=== PATIENT | male | born 1970 ===

== ENCOUNTER 2020-03-18 12:26 | Emergency (ER) | payer BC ==
--- NOTE | 2020-03-18 12:46 | EDM.PDOC ---
ED HPI GENERAL MEDICAL PROBLEM - General Chief Complaint: Upper Extremity Injury/Pain Stated Complaint: LT PINKY FINGER INJURY Time Seen by Provider: 03/18/20 12:41 Source of Information: Reports: Patient History Limitations: Reports: No Limitations - History of Present Illness INITIAL COMMENTS - FREE TEXT/NARRATIVE: 50-year-old male presents to the ED with an acute injury to his left hand particularly the left fifth finger. He states he was working up on a ladder when it tipped over at about 1130 this morning causing him to fall to the ground. Here for is not exactly sure how he hurt his left fifth finger. Is unable to bend it at all. He states he landed on the ladder with his ribs but his ribs do not hurt at all that bad and he did not hit his head. Patient is unable to flex I have the fourth or fifth finger without a good deal of pain. Onset: Today, Sudden Onset Date: 03/18/20 Onset Time: 11:30 Duration: Minutes:, Getting Worse Location: Reports: Upper Extremity, Left (Left) Quality: Reports: Ache ( fifth finger and lateral hand injury), Throbbing Severity: Moderate Improves with: Reports: Rest Worsens with: Reports: Movement Context: Reports: Trauma (Fall from a ladder approximate 1130 and landed on outstretched left hand. Believed to have jammed up his left). Denies: Activity, Exercise, Lifting, Sick Contact Associated Symptoms: Reports: No Other Symptoms Treatments MANAGER SHOP: Reports: Other (see below) (None.) Left Finger-Little Pain Score (Numeric/FACES): 1 - Related Data Allergies Allergy/AdvReac Type Severity Reaction Status Date / Time No Known Allergies Allergy Verified 03/18/20 12:42 Home Meds: Home Meds Empagliflozin [Jardiance] 25 mg PO DAILY 03/18/20 [History] Rosuvastatin Calcium 10 mg PO DAILY 03/18/20 [History] lisinopriL [Lisinopril] 10 mg PO DAILY 03/18/20 [History] metFORMIN HCl [Metformin HCl ER] 500 mg PO BID 03/18/20 [History] Past Medical History Cardiovascular History: Reports: High Cholesterol Endocrine/Metabolic History: Reports: Diabetes, Type II Social & Family History - Living Situation & Occupation Living situation: Reports: Occupation: Employed Review of Systems - Review of Systems Review Of Systems: See Below Constitutional: Reports: No Symptoms Eyes: Reports: Glasses Ears: Reports: No Symptoms Nose: Reports: No Symptoms Mouth/Throat: Reports: No Symptoms Respiratory: Reports: No Symptoms Cardiovascular: Reports: No Symptoms GI/Abdominal: Reports: No Symptoms Genitourinary: Reports: Other (Urinary frequency. Nocturia usually 2-3 times per night.) Musculoskeletal: Reports: Back Pain, Hand Pain (Current pain left hand particularly fifth finger and fifth metacarpal.), Joint Pain (Occasional pain in his knees.) Skin: Reports: No Symptoms Neurological: Reports: No Symptoms Psychiatric: Reports: No Symptoms ED EXAM, GENERAL - Physical Exam Exam: See Below Exam Limited By: No Limitations General Appearance: Alert, WD/WN, No Apparent Distress, Other (Temperature is 37.0 heart rate is 69 is sinus respiratory to 16 BP 119/84 pulse ox 97% room air) Extremities: Other (Examination was limited to the left hand. No swelling of the wrist appreciated. Does have pain over the distal aspect of the left fifth metacarpal and inability to flex the left fifth finger as well as the fourth finger due to pain. I cannot state for sure there is any obvious deformity.) Neurological: Alert, Oriented, CN II-XII Intact Psychiatric: Normal Affect, Normal Mood Skin Exam: Warm, Dry, Intact, Normal Color, No Rash Course - Vital Signs Last Recorded V/S: Last Vital Signs Temp 37.0 C 03/18/20 12:39 Pulse 69 03/18/20 12:39 Resp 16 03/18/20 12:39 BP 119/84 03/18/20 12:39 Pulse Ox 97 03/18/20 12:39 - Orders/Labs/Meds Meds: Medications Discontinued Medications Generic Name Dose Route Start Last Admin Trade Name Miguel Ángelq PRN Reason Stop Dose Admin Bupivacaine HCl 10 ml 03/18/20 13:09 03/18/20 13:19 Sensorcaine-Mpf 0.5% INJECT 03/18/20 13:10 10 ml ONETIME ONE Administration - Radiology Interpretation Free Text/Narrative:: 50-year-old male presents to the ED with an acute injury to his left fifth finger and left fifth metacarpal when he fell from a ladder at about 1130 this morning. Believed to have landed directly on the hand with injury to the distal left finger. At present he is unable to flex the finger at the MCP joint but it does not appear to be obviously deformed. Questionable underlying fracture. Plan x-ray of the left hand to be done. - Re-Assessments/Exams Free Text/Narrative Re-Assessment/Exam: 03/18/20 13:09 x-ray of the left hand reveals a dislocation of the PIP joint of the left fifth finger. The middle phalanx is dislocated anteriorly. Questionable chip fracture off of the joint at that site. Plan will be to provide a digital block using 0.5% bupivacaine and then to reduce the joint. 03/18/20 13:27 Digital block of the left fifth finger has been carried out using 0.5% Marcaine. Patient tolerated the procedure well. I will reduce his dislocated finger in about 10 to 15 minutes. 03/18/20 13:36 reduce the PIP joint under digital block at this time. Postreduction films to be obtained 03/18/20 13:51 post reduction films reveal return to normal anatomical alignment. There is a chip fracture corner fracture off the radial aspect of the proximal phalanx at the PIP joint. We will will be to alexx tape the fourth and fifth fingers together for the next 10 days and then to start gradual range of motion. Motrin 600 mg every 6 hours as needed for pain relief. Departure - Departure Time of Disposition: 13:52 Disposition: Home, Self-Care 01 Condition: Fair Clinical Impression: Dislocation closed, finger Qualifiers: Encounter type: initial encounter Qualified Code(s): S63.259A - Unspecified dislocation of unspecified finger, initial encounter Fracture of proximal phalanx of digit of left hand Qualifiers: Encounter type: initial encounter Fracture type: closed Qualified Code(s): S62.619A - Displaced fracture of proximal phalanx of unspecified finger, initial encounter for closed fracture - Discharge Information *PRESCRIPTION DRUG MONITORING PROGRAM REVIEWED*: Not Applicable *COPY OF PRESCRIPTION DRUG MONITORING REPORT IN PATIENT ROSA: Not Applicable Instructions: Finger or Thumb Dislocation, Finger Fracture, Adult Referrals: Ivette Gallegos NP [Primary Care Provider] - Forms: ED Department Discharge Additional Instructions: Evaluation in the emergency room today in regards to injury to the left fifth finger after falling from a ladder this morning. You likely landed with direct blow to the end of the left fifth finger which in turn resulted in a dislocation at the proximal interphalangeal joint. Digital block was performed using 0.5% bupivacaine and then 10 minutes later the joint was reduced back to normal position. Postreduction x-rays reveal a small chip fracture or corner fracture off of the proximal phalanx on the thumb side of the bone. Treatment is to place cotton pierre between the fourth and fifth fingers in the webspace and alexx tape them together for the next 10 days may then start to resume range of motion of the finger otherwise it gets pretty stiff. Motrin 600 mg every 6 hours needed for pain relief. Sepsis Event Note (ED) - Evaluation Sepsis Screening Result: No Definite Risk - Focused Exam Vital Signs: Vital Signs Temp Pulse Resp BP Pulse Ox 03/18/20 12:39 37.0 C 69 16 119/84 97
--- NOTE | 2020-03-18 13:07 | CR ---
Left hand: 3 views left hand were obtained. Comparison: No prior hand study. Dislocation is noted within the PIP joint of the fifth digit. Small bony density is noted off the PIP joint possibly due to minimal chip fracture. No discrete fracture, dislocation or other bony abnormality is appreciated. Impression: 1. Dislocated PIP joint. Questionable old chip fracture off the PIP joint. 2. No other acute finding is seen on left hand exam. Diagnostic code #3 This report was dictated in MDT
[2020-03-18] MEDS ORDERED: Bupivacaine 0.5% 10 ML SDV INJECT ONE (13:09)
--- NOTE | 2020-03-18 14:38 | CR ---
Left fifth finger: 3 views left fifth finger obtained. Comparison: Prior left hand study performed earlier the same day (12:33 PM). Previous dislocation has been reduced. Small avulsion fracture is noted off the corner base of the middle phalanx with displacement. Soft tissue swelling is noted. No additional abnormality is appreciated. Impression: 1. Previous dislocation has been reduced. 2. Small avulsion fracture as noted above. 3. Soft tissue swelling. Diagnostic code #3 This report was dictated in MDT
== END 2020-03-18 14:07 | disposition home or self-care (01) ==
LOC: JD.ED 12:26
DX: S62.617A Displaced fracture of proximal phalanx of left little finger, initial encounter for closed fracture (principal); S63.287A Dislocation of proximal interphalangeal joint of left little finger, initial encounter; E78.00 Pure hypercholesterolemia, unspecified; E11.9 Type 2 diabetes mellitus without complications; Z79.84 Long term (current) use of oral hypoglycemic drugs; Z79.899 Other long term (current) drug therapy; W11.XXXA Fall on and from ladder, initial encounter
CPT/HCPCS: 26770; 73130; 73140; 99283; J3490; 26755

== ENCOUNTER 2022-07-08 07:59 | Day surgery (SDC) | payer BC ==
[~2022-07-08 07:59] MED LIST: Lactated Ringers 1,000 ML IV SCH; Lidocaine 1%/Sod Bicarbonate in NS 8.4% 1 ML Syringe IDERM PRN; Sodium Chloride 0.9% 10 ML Syringe FLUSH PRN
[2022-07-08] MEDS ORDERED: Sodium Chloride 0.9% 10 ML Syringe FLUSH SCH (09:00)
[2022-07-08] MEDS ORDERED: Propofol 200 MG/20 ML SDV ONE (09:53)
[2022-07-08] MEDS ORDERED: Lidocaine 1% 2 ML ONE (09:54)
== END 2022-07-08 11:13 | disposition home or self-care (01) ==
LOC: JD.SDS 07:59
PROVIDERS: ATTEND Surgery
DX: Z12.11 Encounter for screening for malignant neoplasm of colon (principal); K56.41 Fecal impaction; I10 Essential (primary) hypertension; E78.5 Hyperlipidemia, unspecified; E11.9 Type 2 diabetes mellitus without complications; F17.210 Nicotine dependence, cigarettes, uncomplicated; Z79.899 Other long term (current) drug therapy; Z79.84 Long term (current) use of oral hypoglycemic drugs; Z79.82 Long term (current) use of aspirin; Z98.890 Other specified postprocedural states
CPT/HCPCS: 45385; J2704; J7120; 00812